=== PATIENT | male | born 1975 | race Caucasian/White ===

== ENCOUNTER 2020-09-05 13:41 | Emergency (ER) | payer SELFPAY ==
--- NOTE | ~2020-09-05 | XR_ITS ---
EXAMINATION: XR knee LT min 4V DATE: 09/05/2020 14:22 INDICATION: Left knee pain. TECHNIQUE: 4 views of left knee were obtained. COMPARISON: None. FINDINGS: Bone alignment is normal. No fracture. Joint spaces are well maintained. There is no knee j oint effusion. IMPRESSION: 1. No etiology for the patient's symptoms. Reviewed, dictated and finalized at location A.
[2020-09-05 13:53] VITALS: BP 149/93; PULSE 83; RESP 20; TEMP 36.7; O2SAT 100
--- NOTE | 2020-09-05 14:07 | ED.LOWEXIN ---
HPI - Extremity Injury (Lower) General Chief Complaint: Extremity Injury, Lower Stated Complaint: Left Knee Pain Time Seen by Provider: 09/05/20 13:57 Source: patient and RN notes reviewed Mode of arrival: ambulatory Limitations: no limitations History of Present Illness HPI Narrative: Patient presents today complaining of left knee pain and swelling x3 days. States he woke up from sleeping with significantly swollen left knee. Denies any injury or trauma to the knee. States the significant swelling has resolved, but he does continue to have some mild swelling to the knee, and the pain has persisted. He rates his pain 6/10 at rest, which increases with movement. He describes the pain as burning. He has been using ice and ibuprofen with some relief. States his knee hurts a lot after he has been sitting down on break at work, but once he is up and walking it tends to improve slightly. States the swelling is significantly worse after he has been up and walking around for most of the day at work. MD complaint: knee injury Related Data Allergies Allergy/AdvReac Type Severity Reaction Status Date / Time doxycycline Allergy Unknown Verified 09/05/20 13:57 Review of Systems Review of Systems: Narrative: CONSTITUTIONAL: Denies body aches, fever, chills, or sweats. EYES: Denies visual changes, redness, or discharge. ENT: Denies rhinorrhea, congestion, sore throat, or otalgia. CARDIOVASCULAR: Denies chest pain, palpitations, or edema. RESPIRATORY: Denies cough or dyspnea. GASTROINTESTINAL: Denies abdominal pain, nausea, vomiting, or diarrhea. GENITOURINARY: Denies dysuria or hematuria. SKIN: Denies rash, itching, or wounds. MUSCULOSKELETAL: Denies back pain, or myalgia. + Left knee pain and swelling NEUROLOGIC: Denies headache, numbness, tingling, or weakness. PSYCH: Denies depression or anxiety. [facility] Family History Family History Father Patient's father is in good health Social History Social History Smoking status: Never smoker Second hand tobacco smoke exposure: No Alcohol intake: current Gender identity (if verbalized by the patient): Male Comments At time of signature, I have reviewed and agree with nursing past medical, surgical, social and family history unless otherwise noted. Please see nursing chart for further information. There is no relevant family history pertinent to the presenting complaint Exam Narrative: Exam Narrative: GENERAL: Well-appearing, well-nourished, and in no acute distress. HEAD: Normocephalic, atraumatic. EYES: EOMI. No redness or drainage. Conjunctivae normal. ENT: Mucous membranes pink and moist. NECK: Normal AROM. CHEST: No respiratory distress. EXTREMITIES: Left knee: Tenderness to palpation of the patella. No tenderness to the medial or lateral joint line. No abnormal movement of the patella. No tenderness to the patellar tendon. Mild edema noted about the knee. Pain with flexion and extension. No erythema or ecchymosis noted. Distal sensation intact. Capillary refill normal. Posterior tibial pulse normal.. SKIN: Warm, dry, no rash. Capillary refill normal. Normal skin turgor. NEURO: No focal deficits. Alert and oriented x3. Gait steady. PSYCH: Normal affect. No signs of depression or anxiety. Course Vital Signs Vital signs: Vital Signs Temperature 98.1 F 09/05/20 13:53 Pulse Rate 83 09/05/20 13:53 Respiratory Rate 20 09/05/20 13:53 Blood Pressure 149/93 H 09/05/20 13:53 Pulse Oximetry 100 09/05/20 13:53 Temperature 98.1 F 09/05/20 13:53 Pulse Rate 83 09/05/20 13:53 Respiratory Rate 20 09/05/20 13:53 Blood Pressure 149/93 H 09/05/20 13:53 Pulse Oximetry 100 09/05/20 13:53 Reviewed. Pt has been instructed to follow up with his PCP regarding his elevated blood pressure today. MDM - Extremity Injury (Low
== END 2020-09-05 14:45 | disposition home or self-care (01) ==
PROVIDERS: Emergency Provider Nurse Practitioner
DX: M25.562 Pain in left knee (principal); I10 Essential (primary) hypertension; M10.9 Gout, unspecified
CPT/HCPCS: 73564; 99203; G0463

== ENCOUNTER 2021-08-16 13:35 | Emergency (ER) | payer SELFPAY ==
--- NOTE | ~2021-08-16 | XR_ITS ---
EXAM: XR ankle LT min 3V, XR foot LT min 3V DATE: 08/16/2021 14:17 (accession [id number]), 08/16/2021 14:19 (accession [id number]) HISTORY: fall X 3 WKS PER PT AND PAIN PERSISTS NO NEW INJ. . COMPARISON: Ankle x-ray 11/08/2007. FINDINGS: Normal mineralization. No fracture or dislocation. No lytic or blastic lesion. Mild degene rative change at the tibiotalar joint. Prominent os trigonum. Fused os navicularis. Dystrophic calcif ications in the posterior soft tissues. Sydesmotic, Achilles, and plantar enthesopathy. No concerning erosion or periosteal change. IMPRESSION: No acute osseous finding in the left ankle or foot. Reviewed, dictated and finalized at location K. IMPRESSION: No acute osseous finding in the left ankle or foot.
[2021-08-16 13:47] VITALS: BP 155/100; PULSE 100; RESP 16; TEMP 36.4; O2SAT 97
--- NOTE | 2021-08-16 14:07 | ED.GENADULT ---
HPI - General Adult General Chief complaint: Extremity Injury, Lower Stated complaint: ankle injury Time Seen by Provider: 08/16/21 13:51 Source: RN notes reviewed History of Present Illness HPI narrative: Patient presents emergency department from home for left foot and ankle pain. Patient states he injured his left foot ankle approximately 1 month ago he states that he tripped going over the curb and had rolled his foot and ankle he states since that time has had pain in the left heel and medial foot and ankle with ecchymosis present states it has not gotten better anything further evaluation he states he was seen initially after the injury and had had x-rays were negative at that time. He states he has been keeping the foot elevated he denies any new trauma or injury denies any numbness or tingling in extremities or any other symptoms Related Data Allergies Allergy/AdvReac Type Severity Reaction Status Date / Time No Known Allergies Allergy Verified 08/16/21 13:47 Review of Systems Review of Systems: Gen.: Denies fevers or chills Musculoskeletal: See HPI Neuro: Denies numbness, tingling, weakness Skin: Denies rash Endo: Denies DM PMFSH Past Medical History Medical History (Updated 08/16/21 @ 15:41 by Patricio Coleman DO) Patient denies significant medical history Family History Family History Father Patient's father is in good health Social History Social History Smoking status: Never smoker Second hand tobacco smoke exposure: No Alcohol intake: current Gender identity (if verbalized by the patient): Male Exam Narrative: APPEARANCE: No acute distress, nontoxic, resting in bed Eyes: EOMI HEENT: Normocephalic, atraumatic, RESPIRATORY: No respiratory distress MUSCULOSKELETAl: Tender palpation of the left medial ankle and medial calcaneus there is some ecchymosis present as well as ecchymosis over the medial foot and ankle, tenderness over Achilles tendon base of heel, with Webb test no movement of the left foot dorsalis pedis pulse 2+ neurovascular intact no tenderness of the proximal fibula NEURO: Awake and alert. Following commands, speech normal, no focal deficits SKIN:: Warm, dry. Normal Color no rash or lesions Course Course Emergency Course: Discussed with Dr. Winchester results of work-up discussed concern possible Achilles injury to been over a month old recommends crutches with follow-up as an outpatient Discussed with patient results of workup and diagnosis. Discussed need for follow-up with primary care, proper use of medication, and reasons to return to the emergency department. Patient understands and agrees to current treatment plan. Patient states he has crutches at home discussed need for follow-up with orthopedics and consider possible Achilles injury Vital Signs Vital signs: Vital Signs Temperature 97.6 F 08/16/21 13:47 Pulse Rate 100 08/16/21 13:47 Respiratory Rate 16 08/16/21 13:47 Blood Pressure 155/100 H 08/16/21 13:47 Pulse Oximetry 97 08/16/21 13:47 Temperature 97.6 F 08/16/21 13:47 Pulse Rate 100 08/16/21 13:47 Respiratory Rate 16 08/16/21 13:47 Blood Pressure 155/100 H 08/16/21 13:47 Pulse Oximetry 97 08/16/21 13:47 Medical Decision Making Vital Signs Vital Signs: Vital Signs Temperature 97.6 F 08/16/21 13:47 Pulse Rate 100 08/16/21 13:47 Respiratory Rate 16 08/16/21 13:47 Blood Pressure 155/100 H 08/16/21 13:47 Pulse Oximetry 97 08/16/21 13:47 Temperature 97.6 F 08/16/21 13:47 Pulse Rate 100 08/16/21 13:47 Respiratory Rate 16 08/16/21 13:47 Blood Pressure 155/100 H 08/16/21 13:47 Pulse Oximetry 97 08/16/21 13:47 Imaging Data Radiologist's impression: ITS Impressions Ankle X-Ray 08/16/21 15:08 IMPRESSION: No acute osseous finding in the left ankle or foot.
== END 2021-08-16 16:05 | disposition home or self-care (01) ==
PROVIDERS: Emergency Provider Emergency Medicine
DX: S86.002A Unspecified injury of left Achilles tendon, initial encounter (principal); X50.9XXA Other and unspecified overexertion or strenuous movements or postures, initial encounter
CPT/HCPCS: 73610; 73630; 99283